=== PATIENT | female | born 1985 | race Caucasian/White ===

== ENCOUNTER 2025-02-19 12:59 | Emergency (ER) | payer BC ==
[~2025-02-19] VITALS: Ht 147.3 cm; Wt 68.0 kg
[~2025-02-19 12:59] MED LIST: ADDERALL XR 1010 MG PO; BACTROBAN22 GM TP; CELEXA20 MG PO; FLOMAX0.4 MG PO; LAMICTAL100 MG PO; SEROQUEL25 MG PO; SYNTHROID175 MCG; SYNTHROID200 MCG PO; URIBEL CAPSULE1 EACH; Z.0.PREDNISONE20 MG PO; Z.1.MINOCYCLINE HC10 PO; [UNRECOGNIZED DRUG - REMARK]
[2025-02-19 13:40] VITALS: TEMP 98.5; O2SAT 100
[2025-02-19 14:16] LABS: BASOPHILS % 0.6 % (0.0-1.0); EOSINOPHILS % 0.8 % (0.0-6.0); LYMPHOCYTES % 18.1 % (18.0-39.1); MONOCYTES % 7.3 % (4.4-11.3); NEUTROPHILS % 73.1 % (38.7-80.0); RED CELL DISTRIBUTION WIDTH 12.3 % (11.7-14.4)
[2025-02-19] MEDS: PROMETHAZINE 12.5MG/ NACL 0.9% 12.5 MG/50 ML BAG IV STA (14:26)
[2025-02-19] MEDS: KETOROLAC TROMETHAMINE 30 MG/ML VIAL IV STA (14:28)
[2025-02-19] MEDS: FENTANYL CITRATE/PF 100MCG/2 ML INJ IV ONE (14:29)
[2025-02-19 14:39] LABS: EST GLOMERULAR FILTRATION RATE 92.0 ML/MIN (>=60)
[2025-02-19] MEDS: ONDANSETRON HCL INJ 2MG/ML 2ML 2 MG/ML VIAL IV STA (16:05)
[2025-02-19 16:54] VITALS: PULSE 97; RESP 16
[2025-02-19 16:54] LABS: LEUKOCYTE ESTERASE ,URINE NEGATIVE (NEGATIVE); PROTEIN,URINE DIPSTICK 2+ (NEGATIVE); URINE UROBILINOGEN 0.2 mg/dL (0.2 - 1)
[2025-02-19 16:55] LABS: EPITHELIAL CELLS,URINE FEW /LPF
[2025-02-19] MEDS ORDERED: CEFDINIR300 MG PO (17:23)
[2025-02-19] MEDS ORDERED: PROMETHAZINE HC25 M1 PO (17:25)
== END 2025-02-19 18:05 | disposition home or self-care (01) ==
LOC: ER 14:05
DX: R10.9 Unspecified abdominal pain (principal); N39.0 Urinary tract infection, site not specified; N20.0 Calculus of kidney; R11.0 Nausea; Z85.850 Personal history of malignant neoplasm of thyroid; Z87.442 Personal history of urinary calculi
CPT/HCPCS: 36415; 74176; 80053; 81001; 84702; 85025; 99284; J1885; J2550; J3010; J2405